=== PATIENT | female | born 1990 | race Caucasian/White ===

== ENCOUNTER 2018-07-09 22:31 | Emergency (ER) | payer OTHER ==
[~2018-07-09 22:31] MED LIST: Iopamidol 300 61% 100 ML VIAL FS ONE
[2018-07-09] MEDS ORDERED: Diazepam 5 MG TAB ONE (22:50)
[2018-07-09] MEDS ORDERED: Ketorolac Tromethamine 60 MG/2 ML VIAL ONE (22:50)
--- NOTE | 2018-07-09 23:14 | RAD ---
CHEST TWO VIEWS: 07/09/18 INDICATION: Lower neck pain. COMPARISON: None. FINDINGS: Lungs are clear. Heart size is normal. No pleural effusion or pneumothorax is evident. No acute osseo us abnormality is evident. IMPRESSION: No acute cardiopulmonary abnormality. POS: [facility]
[2018-07-09] MEDS ORDERED: Fentanyl 100 MCG/2 ML VIAL ONE (23:17)
--- NOTE | 2018-07-09 23:52 | CT ---
CT OF SOFT TISSUES OF THE NECK WITH IV CONTRAST: 07/09/18 INDICATION: Right lower neck pain above the level of the clavicles that began at 8:30 this morning. The patient r eported no injury. Patient denies any numbness or weakness or fever. COMPARISON: None. FINDINGS: The visualized intracranial contents are unremarkable appearing. The visualized aspects of the nasopharynx and oropharynx appear within normal limits. The parapharyng eal fat appears preserved. A few shotty appearing lymph nodes are seen within the upper neck. None of which are pathologically e nlarged. The parotid, submandibular and thyroid glands appear within normal limits. The visualized aerodigestive tract appears within normal limits. No pathologically enlarged lymph nodes are seen within the supraclavicular region. The visualized gre at vessels appear within normal limits. The lung apices are clear. No definite acute osseous abnormality is evident. IMPRESSION: No definite CT explanation for the patient's right neck pain. POS: [facility]
== END 2018-07-09 23:52 | disposition home or self-care (01) ==
LOC: SCSER 22:31
DX: M54.2 Cervicalgia (principal); G43.909 Migraine, unspecified, not intractable, without status migrainosus; Z87.01 Personal history of pneumonia (recurrent)
CPT/HCPCS: 70491; 71046; 96372; 96374; J1885; J3010; Q9967

== ENCOUNTER 2019-03-04 08:48 | Outpatient (CLI) | payer OTHER ==
[2019-03-04] MEDS ORDERED: Iopamidol 370 76% 100 ML VIAL ONE (09:00)
--- NOTE | 2019-03-04 09:58 | CT ---
CT OF THE ABDOMEN AND PELVIS: DATE: 03/04/2019. COMPARISON: None. HISTORY: Right upper quadrant pain, hiatal hernia. TECHNIQUE: Axial CT imaging at 5 mm intervals from lung bases through pubic symphysis with IV and oral contrast. Coronal and sagittal reformatted imaging obtained. FINDINGS: The imaged lung bases are unremarkable. No free intraperitoneal air. The liver, gallbladder, spleen, pancreas, adrenal glands, and kidneys appear grossly unremarkable. No evidence for bowel inflammatory change or bowel obstruction. There is contrast media within the di stal esophagus which may signify reflux. No significant hiatal hernia is appreciated on this examination. Small hiatal hernia cannot be fully excluded. Appendix appears grossly unremarkable. There is a retroaortic left renal vein. No abdominal or pelvic lymphadenopathy. Review of the osseous structures demonstrates no acute findings. IMPRESSION: No acute findings. Incidental findings as described above. Transcribed Date/Time: 03/04/2019 10:06 AM
== END 2019-03-04 08:49 | disposition home or self-care (01) ==
LOC: SCSCT 08:48
PROVIDERS: ATTEND Internal Medicine
DX: R10.11 Right upper quadrant pain (principal); R10.13 Epigastric pain
CPT/HCPCS: 74177; Q9967

== ENCOUNTER 2019-04-03 15:42 | Outpatient (CLI) | payer OTHER ==
[2019-04-03 16:42] LABS: #Eosinphils 0.1 thou/uL (0.0-0.7); #Lymphocytes 1.9 thou/uL (1.20-3.40); #Monocytes 0.6 thou/uL (0.11-0.59); #Neutrophils 5.4 thou/uL (1.40-6.50); %Basophils 0.5 % (0.0-1.0); %Eosinophils 0.6 % (0.0-10.0); %Lymphocytes 23.8 % (21.0-51.0); %Monocytes 7.4 % (0.0-10.0); %Neutrophils 67.6 % (42.0-75.0); Hemoglobin 12.5 g/dL (12.0-16.0); Mean Corpuscular HGB CONC 33.4 g/dL (32.0-36.0); Mean Corpuscular Hemoglobin 30.6 pg (27.0-31.0); Mean Corpuscular Volume 91.6 fL (78.0-98.0); Mean Platelet Volume 6.7 fL (7.4-10.4); Platelet Count 337 thou/uL (130-400); Red Blood Cell (RBC) Count 4.09 mill/uL (4.20-5.40)
[2019-04-03 17:04] LABS: ALT (SGPT) 13 U/L (8-55); AST (SGOT) 15 U/L (5-34); Albumin 4.8 g/dL (3.5-5.0); Alkaline Phosphatase 83 U/L (40-110); Anion Gap 13 mmol/L (10-20); BHCG - Serum Negative (NEGATIVE); BUN (Urea Nitrogen) 14 mg/dL (7.0-18.7); Bilirubin, Direct 0.2 mg/dL (0.1-0.3); Bilirubin, Total 0.5 mg/dL (0.2-1.2); Calc. Creatinine Clearance 0 mL/min (70-130); Calcium 9.6 mg/dL (7.8-10.44); Carbon Dioxide 24 mmol/L (22-29); Chloride 105 mmol/L (98-107); Estimated GFR-MDRD 75; Glucose 87 mg/dL (70-105); Potassium 3.9 mmol/L (3.5-5.1); Pregs Control Background? CLEAR/WHITE (CLR/WHITE); Pregs Control Bar Appear? YES (CONTROL BAR); Protein, Total 7.6 g/dL (6.0-8.3); Sodium 138 mmol/L (136-145)
== END 2019-04-03 15:43 | disposition home or self-care (01) ==
LOC: LABBT 15:42
PROVIDERS: ATTEND Surgery
DX: Z01.812 Encounter for preprocedural laboratory examination (principal); K82.8 Other specified diseases of gallbladder
CPT/HCPCS: 80048; 80076; 84703; 85025

== ENCOUNTER 2019-04-11 11:39 | Day surgery (SDC) | payer OTHER ==
[2019-04-03 16:00] VITALS: BMI 31.8
[~2019-04-11 11:39] MED LIST changes: +Glycopyrrolate 0.2 MG/ML 5 ML SYRINGE ONE; -Iopamidol 300 61% 100 ML VIAL FS ONE; +Ondansetron PF 4 MG/2 ML Vial ONE; +PROPOFOL 200 MG/20 ML VIAL ONE; +Rocuronium Bromide 10 MG/ML (10ML VIAL) ONE
[2019-04-11] MEDS ORDERED: Lidocaine 1% w/Epinephrine 1:100K 20 ML VIAL ONE (13:34)
[2019-04-11] MEDS ORDERED: Bupivacaine 0.25% HCL 30 ML VIAL ONE (13:34)
[2019-04-11] MEDS ORDERED: Fentanyl 250 MCG/5 ML VIAL ONE (13:40)
[2019-04-11] MEDS ORDERED: Midazolam HCl 2 mg/2 ml Vial ONE (13:40)
[2019-04-11] MEDS ORDERED: Midazolam HCl 5 mg/5 ml Vial ONE (13:41)
[2019-04-11] MEDS ORDERED: Fentanyl 100 MCG/2 ML VIAL ONE ×2 (14:52→15:15)
--- NOTE | 2019-04-11 14:56 | OP ---
DATE OF PROCEDURE: 04/11/2019 PREOPERATIVE DIAGNOSIS: Chronic biliary dyskinesia. POSTOPERATIVE DIAGNOSIS: Chronic biliary dyskinesia. PROCEDURE PERFORMED: Laparoscopic cholecystectomy. ANESTHESIA: General. ESTIMATED BLOOD LOSS: Minimal. COMPLICATIONS: None. SPECIMEN: Gallbladder. FINDINGS: Chronic cholecystitis. PROCEDURE IN DETAIL: The patient was taken to the operating room and laid supine on the operating room table. After general anesthetic was obtained, the abdomen was prepped and draped in a sterile fashion. A curved incision was made below the umbilicus. Cautery was used to dissect down to the umbilical fascia. Umbilical fascia was incised and held up using a Davey. The abdominal cavity was entered using a Karma clamp. Holding stitch of Vicryl was placed on each side of the fascia. Agosto trocar was placed. High-flow pneumoperitoneum was obtained. An upper midline 5 mm port and 2 right upper quadrant 5 mm ports were placed under direct camera visualization. The gallbladder was retracted from the gallbladder fossa. The peritoneum of the gallbladder was opened anteriorly and posteriorly. The critical view triangle was seen showing only the cystic duct and cystic artery branching from medial to lateral. There were no other branching structures. Two clips were placed proximally on the cystic duct and one laterally. It was cut using laparoscopic scissors. The cystic artery was taken in the same way. Electrocautery was then used to dissect the gallbladder out of the gallbladder fossa. The gallbladder was placed in an Endo catch bag and brought out through the Agosto. There was no bleeding or bile in the liver bed. The cystic duct stump and cystic artery stump were intact, without evidence of extravasation or bleeding. All port sites were infiltrated using local anesthesia. All ports were removed under camera visualization. Pneumoperitoneum was let down. The Vicryl was used to close the fascial defect below the umbilicus. All incisions were irrigated and closed using 4-0 Monocryl and Dermabond. The patient was en route to Recovery in stable condition. All instrument counts, needle counts and lap counts were correct. Job ID: [id number]
[2019-04-11] MEDS ORDERED: Morphine 4 MG/ML VIAL ONE (15:43)
[2019-04-11] MEDS ORDERED: HYDROcodone/Acetaminophen 5/325 mg Tablet ONE ×2 (17:06→17:42)
== END 2019-04-11 17:56 | disposition home or self-care (01) ==
LOC: SDC 11:39
PROVIDERS: ATTEND Surgery
PROC: 0FT44ZZ Resection of Gallbladder, Percutaneous Endoscopic Approach (ICD-10-PCS; principal; 2019-04-11)
DX: K81.1 Chronic cholecystitis (principal); K82.8 Other specified diseases of gallbladder; Z79.899 Other long term (current) drug therapy; Z88.8 Allergy status to other drugs, medicaments and biological substances; Z91.048 Other nonmedicinal substance allergy status
CPT/HCPCS: 88304; J0690; J2250; J2270; J2405; J2704; J3010; S0020

== ENCOUNTER 2019-07-16 11:46 | Emergency (ER) | payer OTHER ==
[2019-07-16 12:19] LABS: #Basophils 0.1 thou/uL (0.0-0.2); #Eosinphils 0.1 thou/uL (0.0-0.7); #Lymphocytes 2.7 thou/uL (1.20-3.40); #Monocytes 0.8 thou/uL (0.11-0.59); %Basophils 1.1 % (0.0-1.0); %Eosinophils 0.8 % (0.0-10.0); %Lymphocytes 27.9 % (21.0-51.0); %Monocytes 8.3 % (0.0-10.0); Mean Corpuscular HGB CONC 33.7 g/dL (32.0-36.0); Mean Corpuscular Hemoglobin 31.6 pg (27.0-31.0); Mean Corpuscular Volume 93.8 fL (78.0-98.0); Mean Platelet Volume 6.7 fL (7.4-10.4); Platelet Count 370 thou/uL (130-400); RBC Distribution Width 11.7 % (11.5-14.5); Red Blood Cell (RBC) Count 4.11 mill/uL (4.20-5.40); White Blood Cell (WBC) Count 9.6 thou/uL (4.8-10.8)
--- NOTE | 2019-07-16 12:24 | RAD ---
PA AND LATERAL CHEST: Date: 07/16/2019 HISTORY: Chest pain. COMPARISON: study. FINDINGS: Heart size and mediastinum are within normal limits. Lungs are clear of infiltrates. No bony findings . IMPRESSION: No active intrathoracic disease. POS: [facility]
[2019-07-16 12:50] LABS: ALT (SGPT) 17 U/L (8-55); AST (SGOT) 12 U/L (5-34); Albumin 4.4 g/dL (3.5-5.0); Alkaline Phosphatase 81 U/L (40-110); Anion Gap 11 mmol/L (10-20); BUN (Urea Nitrogen) 13 mg/dL (7.0-18.7); Bilirubin, Total 0.4 mg/dL (0.2-1.2); Calc. Creatinine Clearance 0 mL/min (70-130); Calcium 9.3 mg/dL (7.8-10.44); Carbon Dioxide 28 mmol/L (22-29); Chloride 105 mmol/L (98-107); Estimated GFR-MDRD 84; Globulin 3.2 g/dL (2.4-3.5); Glucose 83 mg/dL (70-105); Lipase 17 U/L (8-78); Potassium 3.3 mmol/L (3.5-5.1); Protein, Total 7.6 g/dL (6.0-8.3); Sodium 141 mmol/L (136-145)
[2019-07-16] MEDS ORDERED: HYDROcodone/Acetaminophen 5/325 mg Tablet ONE (14:52)
== END 2019-07-16 14:57 | disposition home or self-care (01) ==
LOC: ERS 11:46
DX: R07.9 Chest pain, unspecified (principal); G43.909 Migraine, unspecified, not intractable, without status migrainosus
CPT/HCPCS: 36415; 71046; 80053; 83690; 84484; 85025; 93005

== ENCOUNTER 2023-07-13 15:03 | Outpatient (CLI) | payer BC | END 2023-07-13 15:04 | disposition home or self-care (01) | LOC: MRI 15:03 → BICMRI 15:04 | PROVIDERS: ATTEND Family Medicine | DX: M43.16 Spondylolisthesis, lumbar region (principal); M51.37 Other intervertebral disc degeneration, lumbosacral region | CPT/HCPCS: 72148 ==